=== PATIENT | female | born 1950 ===

== ENCOUNTER 2017-01-21 15:22 | Emergency (ER) | payer SELFPAY ==
[2017-01-21] MEDS ORDERED: Albuterol 0.083% Inhal Sol (2.5 mg/3 mL) UD IH STA (15:51)
[2017-01-21] MEDS ORDERED: Albuterol 0.083% Inhal Sol (2.5 mg/3 mL) UD ONE (16:09)
--- NOTE | 2017-01-21 16:15 | C.PDOC ---
History Of Present Illness 66 y/o female presents to ED with complaints of dry cough, subjective fever and chest tightness for 1 week. Patient also9 reports urine incontinence when coughing which prompted visit to ed today. Patient states she does not smoke but her mother and aunt do and they were at her house x1 month ago smoking "a lot". Patient denies n/v/d, headache, dysuria, abdominal pain or any other complaints at this time. Time Seen by Provider: 01/21/17 15:45 Chief Complaint (Nursing): Flu-like Symptoms History Per: Patient History/Exam Limitations: no limitations Onset/Duration Of Symptoms: Days Current Symptoms Are (Timing): Still Present Past Medical History Reviewed: Historical Data, Nursing Documentation, Vital Signs Vital Signs: Last Vital Signs Temp 97.8 F 01/21/17 15:27 Pulse 77 01/21/17 15:27 Resp 18 01/21/17 15:27 BP 128/79 01/21/17 15:27 Pulse Ox 97 01/21/17 16:17 - Medical History PMH: Anxiety, Depression, Hypercholesterolemia Surgical History: No Surg Hx Family History: States: No Known Family Hx - Social History Hx Alcohol Use: No Hx Substance Use: No - Immunization History Hx Tetanus Toxoid Vaccination: No Hx Influenza Vaccination: No Hx Pneumococcal Vaccination: No Review Of Systems Except As Marked, All Systems Reviewed And Found Negative. Constitutional: Positive for: Fever Cardiovascular: Positive for: Chest Pain Respiratory: Positive for: Cough. Negative for: Shortness of Breath Gastrointestinal: Negative for: Nausea, Vomiting, Abdominal Pain Genitourinary: Positive for: Incontinence. Negative for: Dysuria, Hematuria Musculoskeletal: Negative for: Back Pain Skin: Negative for: Rash Physical Exam - Physical Exam Appears: Non-toxic, No Acute Distress Skin: Normal Color, Warm, Dry, No Rash Head: Atraumatic, Normacephalic Eye(s): bilateral: Normal Inspection Oral Mucosa: Moist Neck: Normal ROM, Supple Chest: Symmetrical Cardiovascular: Rhythm Regular, No Murmur Respiratory: No Rales, Rhonchi, Wheezing (forced expiratory), Other Gastrointestinal/Abdominal: Soft, No Tenderness, No Guarding, No Rebound Extremity: Normal ROM, Capillary Refill (<2 seconds) Neurological/Psych: Oriented x3 ED Course And Treatment - Laboratory Results Result Diagrams: 01/21/17 16:15 01/21/17 16:15 Lab Interpretation: Normal O2 Sat by Pulse Oximetry: 97 (RA) Pulse Ox Interpretation: Normal - Radiology CXR: Viewed By Me, Read By Radiologist CXR Interpretation: Yes: No Acute Disease Reevaluation Time: 18:22 Reassessment Condition: Improved (Feels much better after albuterol.) Disposition Counseled Patient/Family Regarding: Studies Performed, Diagnosis, Need For Followup, Rx Given - Disposition Referrals: Angelo Spear MD [Staff Provider] - Disposition: HOME/ ROUTINE Disposition Time: 18:23 Condition: IMPROVED Prescriptions: Albuterol HFA [Ventolin HFA 90 mcg/actuation (8 g)] 1 puff IH QID PRN #1 inhaler PRN Reason: Wheezing Instructions: Bronchospasm (ED) Forms: [employer] (Mongolian) Print Language: AMHARIC - Clinical Impression Clinical Impression: Bronchospasm with bronchitis, acute - Scribe Statement The provider has reviewed the documentation as recorded by the Scribronny Gonzalez All medical record entries made by the Scribe were at my direction and personally dictated by me. I have reviewed the chart and agree that the record accurately reflects my personal performance of the history, physical exam, medical decision making, and the department course for this patient. I have also personally directed, reviewed, and agree with the discharge instructions and disposition.
[2017-01-21 16:25] LABS: CHLORIDE 101 mmol/L (98-107)
[2017-01-21 16:26] LABS: POTASSIUM 4.2 mmol/L (3.6-5.2); SODIUM 138 mmol/L (132-148)
[2017-01-21 16:28] LABS: ALB/GLOB RATIO 1.4 (1.0-2.1); ALKALINE PHOSPHATASE 49 U/L (38-126); ALT/SGPT 39 U/L (9-52); AST/SGOT 30 U/L (14-36); BILIRUBIN,TOTAL 0.4 mg/dL (0.2-1.3); BLOOD UREA NITROGEN 12 mg/dL (7-17); CARBON DIOXIDE 26 mmol/L (22-30); GFR AFRICAN-AMERICAN > 60
[2017-01-21 16:29] LABS: CALCIUM 9.6 mg/dl (8.6-10.4); GLUCOSE,RANDOM 94 mg/dL (65-105)
[2017-01-21 16:37] LABS: BASO % 0.3 % (0.0-2.0); EOS # 0.1 K/uL (0.0-0.7); EOS % 1.6 % (0.0-4.0); HEMATOCRIT 39.7 % (34.0-47.0); LYMPH # 1.9 K/uL (1.0-4.3); LYMPH % 40.5 % (20.0-40.0); MEAN CELL VOLUME 86.9 fL (81.0-99.0); MEAN CORPUSCULAR HEMOGLOBIN 29.2 pg (27.0-31.0); MEAN CORPUSCULAR HGB CONC 33.6 g/dL (33.0-37.0); MEAN PLATELET VOLUME 8.8 fL (7.2-11.7); MONO # 0.4 K/uL (0.0-0.8); MONO % 9.3 % (0.0-10.0); NRBC % 0.2 % (0.0-2.0); RED CELL DISTRIBUTION WIDTH 13.2 % (11.5-14.5); WHITE BLOOD COUNT 4.6 K/uL (4.8-10.8)
--- NOTE | 2017-01-21 16:51 | RAD ---
HISTORY: SOB COMPARISON: None available. TECHNIQUE: Chest PA and lateral FINDINGS: LUNGS: No focal consolidation. Please note that chest x-ray has limited sensitivity for the detection of pulmonary masses. PLEURA: No significant pleural effusion identified. No definite pneumothorax . CARDIOVASCULAR: The cardiomediastinal silhouette appears within normal limits of size. Atherosclerotic calcifications of the aorta. OSSEOUS STRUCTURES: Mild degenerative changes. VISUALIZED UPPER ABDOMEN: Unremarkable. OTHER FINDINGS: None. IMPRESSION: No focal consolidation, significant pleural effusion, or definite pneumothorax identified.
[2017-01-21 18:42] VITALS: BP 121/77; PULSE 73; RESP 20; TEMP 98.4; O2SAT 96
== END 2017-01-21 18:46 | disposition home or self-care (01) ==
LOC: C.ER 15:22
DX: J20.9 Acute bronchitis, unspecified (principal)

== ENCOUNTER → 2018-07-16 | Outpatient (CLI) | payer MEDICARE | LOC: C.MAMMO 13:43 | DX: Z12.31 Encounter for screening mammogram for malignant neoplasm of breast (principal); M81.0 Age-related osteoporosis without current pathological fracture ==

== ENCOUNTER 2018-08-23 10:40 | Emergency (ER) | payer MEDICARE ==
[2018-08-23 10:40] VITALS: BMI 23.3
[2018-08-23 10:47] VITALS: BP 125/76; PULSE 66; RESP 18; TEMP 97.9; O2SAT 98
--- NOTE | 2018-08-23 11:44 | RAD ---
PROCEDURE: Right Knee Radiographs. HISTORY: s/p fall - r/o fx COMPARISON: None available FINDINGS: BONES: Degenerative changes including tenting of the intercondylar notch. No acute displaced fracture. JOINTS: No dislocation. JOINT EFFUSION: No significant joint effusion. OTHER FINDINGS: Vascular calcifications. IMPRESSION: Degenerative changes. No acute displaced fracture, dislocation, or significant joint effusion identified. If symptoms persist, or if there is continued clinical concern, x-ray follow-up in 7-10 days should be considered.
--- NOTE | 2018-08-23 11:55 | C.PDOC ---
History Of Present Illness 68 y/o female presents to the ER for evaluation of right knee pain s/p fall yesterday. Patient states that she slipped and fall landing on her right knee while she was in the bathroom. Patient reports that she is able to ambulate. She notes that she went to her PMD today. He referred her to the ER for for further evaluation.Denies having symptoms prior to fall, head injury, LOC, headache, dizziness, CP,SOB, nausea, vomiting, and other injuries. Time Seen by Provider: 08/23/18 10:46 Chief Complaint (Nursing): Hip Pain History Per: Patient History/Exam Limitations: no limitations Onset/Duration Of Symptoms: Days Current Symptoms Are (Timing): Still Present Severity: Moderate Past Medical History Reviewed: Historical Data, Nursing Documentation, Vital Signs Vital Signs: Last Vital Signs Temp 97.9 F 08/23/18 10:46 Pulse 66 08/23/18 10:46 Resp 18 08/23/18 10:46 BP 125/76 08/23/18 10:46 Pulse Ox 98 08/23/18 10:46 - Medical History PMH: Anxiety, Depression, Hypercholesterolemia Surgical History: No Surg Hx Family History: States: No Known Family Hx - Social History Hx Alcohol Use: No Hx Substance Use: No - Immunization History Hx Tetanus Toxoid Vaccination: No Hx Influenza Vaccination: No Hx Pneumococcal Vaccination: No Review Of Systems Except As Marked, All Systems Reviewed And Found Negative. Cardiovascular: Negative for: Chest Pain Respiratory: Negative for: Shortness of Breath Gastrointestinal: Negative for: Nausea, Vomiting Musculoskeletal: Positive for: Other (right knee pain) Neurological: Negative for: Weakness, Numbness, Headache, Dizziness Physical Exam - Physical Exam Appears: Non-toxic, No Acute Distress Skin: Normal Color, Warm, Dry Head: Atraumatic, Normacephalic Eye(s): bilateral: Normal Inspection Nose: Normal Oral Mucosa: Moist Neck: Supple Chest: Symmetrical Extremity: Normal ROM, Tenderness (diffuse tenderness to anterior aspect of right knee), No Swelling Neurological/Psych: Oriented x3, Normal Speech, Normal Sensation ED Course And Treatment O2 Sat by Pulse Oximetry: 98 (RA) Pulse Ox Interpretation: Normal - Other Rad X-Ray-Right Knee X-Ray: Viewed By Me, Read By Radiologist Interpretation: PROCEDURE: Right Knee Radiographs. HISTORY: s/p fall - r/o fx. COMPARISON: None available. FINDINGS: BONES: Degenerative changes including tenting of the intercondylar notch. No acute displaced fracture. JOINTS: No dislocation. JOINT EFFUSION: No significant joint effusion. OTHER FINDINGS: Vascular calcifications. IMPRESSION: Degenerative changes. No acute displaced fracture, dislocation, or significant joint effusion identified. If symptoms persist, or if there is continued clinical concern, x-ray follow-up in 7-10 days should be considered. X-Ray-Right Hip X-Ray: Viewed By Me, Read By Radiologist Interpretation: Indication: s/p fall - r/o fx. Right hip with pelvis radiographs. Comparison: None available. Findings: Coarse pelvic calcifications consistent with degenerating uterine fibroid. Additional pelvic calcifications, likely phleboliths. No acute displaced fracture or dislocation identified. Sacroiliac joints appear intact. Mild constipation. Soft tissues appear unremarkable. No evidence of radiopaque foreign body. Impression: No acute displaced fracture or dislocation evident. If high clinical index of suspicion, suggest cross-sectional imaging for further evaluation. Otherwise, if symptoms persist or if there is continued clinical concern, x-ray follow-up in 7-10 days should be considered. Medical Decision Making Medical Decision Making: Plan: --X-Ray-Hip --X-Ray-Right Knee Updates: X-Ray- Hip and X-Ray-Right Knee are negative for fracture. Results discussed with . Patient has been discharged and instructed to follow up with . Disposition - Disposition Referrals: Morales Golden MD [Staff Provider] - Disposition: HOME/ ROUTINE Disposition Time: 12:40 Condition: GOOD Additional Instructions: EUFEMIA TAYLOR, thank you for letting us take care of you today. The emergency medical care you received today was directed at your acute symptoms. If you were prescribed any medication, please fill it and take as directed. It may take several days for your symptoms to resolve. Return to the Emergency Department if your symptoms worsen, do not improve, or if you have any other problems. Please contact your doctor or call one of the physicians/clinics you have been referred to that are listed on the Patient Visit Information form that is included in your discharge packet. Bring any paperwork you were given at discharge with you along with any medications you are taking to your follow up visit. Our treatment cannot replace ongoing medical care by a primary care provider outside of the emergency department. Thank you for allowing the [facility] team to be part of your care today. Put ice on your knee for 15 minutes at a time 4-5 times a day to bring down the swelling. Follow up with your primary care doctor this week for re-evaluation and further management. EUFEMIA TAYLOR, michael por dejarnos cuidar de ti hoy. La atencin mdica de emergencia que recibi hoy se dirigi a sky sntomas agudos. Si le recetaron algn medicamento, llnelo y tmelo segn las indicaciones. Los sntomas pueden tardar varios garza en resolverse. Regrese al Departamento de Emergencias si sky sntomas empeoran, no mejoran o si tiene otros problemas. Comunquese con kowalski mdico o llame a dunia de los mdicos / clnicas a los que newman sido referido que figuran en el formulario de Informacin de visita al paciente que se incluye en kowalski paquete de latrice. Lleve todos los documentos que recibi al momento del latrice junto con los medicamentos que est tomando para kowalski visita de seguimiento. Nuestro tratamiento no puede reemplazar la atencin mdica continua por parte de un proveedor de atencin primaria fuera del departamento de emergencias. Michael por permitir que el equipo de [facility] sea parte de kowalski atencin hoy. Ponga hielo en kowalski rodilla whitley 15 minutos a la vez de 4 a 5 veces al da para reducir la hinchazn. Nazia un seguimiento con kowalski mdico de atencin primaria esta semana para shirley reevaluacin y manejo adicional. Prescriptions: Ibuprofen [Motrin] 600 mg PO Q6 PRN #20 tab PRN Reason: Pain, Moderate (4-7) Instructions: Knee Sprain (DC) Forms: [employer] (Romansh) Print Language: BOTSWANAN - Clinical Impression Clinical Impression: Knee sprain - Scribe Statement The provider has reviewed the documentation as recorded by the Scribe Arsh Patton Provider Attestation: All medical record entries made by the Musaibe were at my direction and personally dictated by me. I have reviewed the chart and agree that the record accurately reflects my personal performance of the history, physical exam, medical decision making, and the department course for this patient. I have also personally directed, reviewed, and agree with the discharge instructions and disposition.
--- NOTE | 2018-08-23 12:38 | RAD ---
Indication: s/p fall - r/o fx Right hip with pelvis radiographs Comparison: None available Findings: Coarse pelvic calcifications consistent with degenerating uterine fibroid. Additional pelvic calcifications, likely phleboliths. No acute displaced fracture or dislocation identified. Sacroiliac joints appear intact. Mild constipation. Soft tissues appear unremarkable. No evidence of radiopaque foreign body. Impression: No acute displaced fracture or dislocation evident. If high clinical index of suspicion, suggest cross-sectional imaging for further evaluation. Otherwise, if symptoms persist or if there is continued clinical concern, x-ray follow-up in 7-10 days should be considered.
== END 2018-08-23 12:59 | disposition home or self-care (01) ==
LOC: C.ER 10:40
DX: S83.91XA Sprain of unspecified site of right knee, initial encounter (principal); W01.0XXA Fall on same level from slipping, tripping and stumbling without subsequent striking against object, initial encounter; Y92.002 Bathroom of unspecified non-institutional (private) residence as the place of occurrence of the external cause